=== PATIENT | male | born 1950 | race Caucasian/White ===

== ENCOUNTER 2023-04-16 10:48 | Emergency (ER) | payer MEDICARE ==
[~2023-04-16] VITALS: Ht 175.3 cm; Wt 80.0 kg
[2023-04-16] MEDS ORDERED: LIDOcaine 1% W/epiNEPHrine 1:100,000 20ml vial SQ STA (12:18)
[2023-04-16] MEDS ORDERED: TETanus/Pertussis (Acell)/Diphther VAC/PF (Tdap-Adult) 0.5ml syringe IMVAC ONE (12:20)
[2023-04-16] MEDS ORDERED: CYCL-1 PO (14:09)
[2023-04-16] MEDS ORDERED: NAPR-56 PO (14:09)
[2023-04-16 14:12] VITALS: BP 124/69; PULSE 77; RESP 18; TEMP 97.8; O2SAT 96
== END 2023-04-17 06:37 | disposition home or self-care (01) ==
LOC: ER 10:49
DX: S05.42XA Penetrating wound of orbit with or without foreign body, left eye, initial encounter (principal); W19.XXXA Unspecified fall, initial encounter; Y93.89 Activity, other specified; Y92.89 Other specified places as the place of occurrence of the external cause; Y99.8 Other external cause status
CPT/HCPCS: 12013; 70450; 71046; 72125; 90471; 90715; 99285; A6449

== ENCOUNTER 2023-05-09 09:26 | Outpatient (CLI) | payer MEDICARE ==
[~2023-05-09 09:26] MED LIST: CYCL-1 PO; NAPR-56 PO
[2023-05-09 10:04] LABS: BASOPHILS % (AUTO) 0.6 % (0-1); EOSINOPHILS # (AUTO) 0.2 X10'3 (0-0.9); EOSINOPHILS % (AUTO) 3.3 % (0-6); HEMATOCRIT 42.1 % (42.0-52.0); HEMOGLOBIN 14.3 g/dl (14.0-17.9); LYMPHOCYTES # (AUTO) 1.8 X10'3 (1.1-4.8); MEAN CORPUSCULAR HEMOGLOBIN 30.8 PG (27.0-31.0); MEAN CORPUSCULAR HGB CONC 33.9 g/dL (33.0-36.5); MEAN PLATELET VOLUME 7.8 FL (7.4-10.4); MONOCYTES # (AUTO) 0.6 X10'3 (0-0.9); MONOCYTES % (AUTO) 8.9 % (2-12); NEUTROPHILS # (AUTO) 4.5 X10'3 (1.8-7.7); NEUTROPHILS % (AUTO) 62.2 % (42-75); PLATELET COUNT 195 X10'3 (140-440); RED BLOOD COUNT 4.62 X10'6 (4.70-6.10); RED CELL DISTRIBUTION WIDTH 13.6 % (11.5-14.5); WHITE BLOOD COUNT 7.2 X10'3 (4.5-11.0)
[2023-05-09 10:08] LABS: ALANINE AMINOTRANSFERASE 28 U/L (12-78); ALBUMIN 3.8 G/DL (3.4-5.0); ALBUMIN/GLOBULIN RATIO 1.1 (1.1-1.5); ALKALINE PHOSPHATASE 43 IU/L (46-116); ANION GAP 6 (8-16); ASPARTATE AMINO TRANSFERASE 16 U/L (10-37); BILIRUBIN,TOTAL 0.5 MG/DL (0.1-1.0); BLOOD UREA NITROGEN 15 MG/DL (7-18); BUN/CREATININE RATIO 15.2 (10.0-20.0); CALCIUM 9.4 MG/DL (8.5-10.1); CHLORIDE 103 MMOL/L (99-107); CREATININE 0.99 MG/DL (0.60-1.10); GLUCOSE 106 MG/DL (70-104); SODIUM 139 MMOL/L (135-145); TOTAL CARBON DIOXIDE 30.1 MMOL/L (24-32); TOTAL PROTEIN 7.3 G/DL (6.4-8.2); eGFR 75 ML/MIN
[2023-05-09] MEDS ORDERED: iohexol 300mg/ml 100ml inj. ONE (10:40)
== END 2023-05-09 23:59 | disposition home or self-care (01) ==
LOC: LAB 09:26 → RAD 23:59
PROVIDERS: ATTEND Physician Assistant
DX: N40.0 Benign prostatic hyperplasia without lower urinary tract symptoms (principal); R10.9 Unspecified abdominal pain; E78.5 Hyperlipidemia, unspecified; R73.03 Prediabetes
CPT/HCPCS: 36415; 74178; 80053; 83036; 84153; 85025; Q9967